=== PATIENT | female | born 1955 | race African-American/Black ===

== ENCOUNTER 2019-01-26 18:31 | Emergency (ER) | payer BC ==
[2019-01-26] MEDS ORDERED: ONDANSETRON 4 MG TAB.RAPDIS PO ONE (19:49)
[2019-01-26 21:19] LABS: HEMATOCRIT 29.4 % (36.0-47.0); HEMOGLOBIN 8.9 g/dL (12.0-15.5); MEAN CORPUSCULAR HEMOGLOBIN 23.4 pg (27.0-33.4); MEAN CORPUSCULAR HGB CONC 30.3 g/dL (32.0-36.0); MEAN CORPUSCULAR VOLUME 77 fl (80-97); PLATELET COUNT 369 10^3/uL (150-450); RED BLOOD COUNT 3.81 10^6/uL (3.72-5.28); RED CELL DISTRIBUTION WIDTH 17.4 % (11.5-14.0); WHITE BLOOD COUNT 16.3 10^3/uL (4.0-10.5)
[2019-01-26 21:37] LABS: ALBUMIN 5.2 g/dL (3.5-5.0); ALKALINE PHOSPHATASE 187 U/L (38-126); ANION GAP 16 (5-19); ASPARTATE AMINO TRANSFERASE 40 U/L (14-36); BILIRUBIN,DIRECT 0.5 mg/dL (0.0-0.4); BILIRUBIN,TOTAL 0.6 mg/dL (0.2-1.3); BLOOD UREA NITROGEN 11 mg/dL (7-20); CARBON DIOXIDE 26 mmol/L (22-30); CHLORIDE 101 mmol/L (98-107); GLUCOSE 113 mg/dL (75-110); POTASSIUM 3.9 mmol/L (3.6-5.0); TOTAL PROTEIN 10.1 g/dL (6.3-8.2)
[2019-01-26 21:41] LABS: ABSOLUTE MONOCYTES # (MANUAL) 0.2 10^3/uL (0.1-1.4); BAND NEUTROPHILS % (MANUAL) 8 % (3-5); BASOPHILS % (MANUAL) 0 % (0-2); EOSINOPHILS % (MANUAL) 0 % (0-6); LYMPHOCYTES % (MANUAL) 6 % (13-45); METAMYELOCYTES % (MANUAL) 1 % (0); MONOCYTES % (MANUAL) 1 % (3-13); SEGMENTED NEUTROPHILS % (MAN) 84 % (42-78); TOTAL CELLS COUNTED 100
[2019-01-26 21:43] LABS: ANISOCYTOSIS 1+; HYPOCHROMASIA 1+; TOXIC GRANULATION SLIGHT
[2019-01-26 21:44] LABS: PLATELET COMMENT ADEQUATE
--- NOTE | 2019-01-26 23:10 | RADIOLOGY REPORT (SQ) ---
CT ABDOMEN PELVIS WITH IV CONTRAST EXAM DATE: 01/26/2019 7:48 PM CDT HISTORY: Abdominal pain. COMPARISON: None. TECHNIQUE: CT scan of the abdomen and pelvis was performed with IV contrast. This exam was performed according to our departmental dose-optimization program, which includes automated exposure control, adjustment of the mA and/or kV according to patient size and/or use of iterative reconstruction technique. FINDINGS: Scattered atelectasis at the lung bases. No pleural or pericardial effusion. The liver, spleen, pancreas, gallbladder, adrenal glands, and kidneys are unremarkable. No hydronephrosis or urinary stones are seen. There has been a prior hysterectomy. There are multiple loops of distal small bowel which have wall thickening and mucosal hyperenhancement distant with terminal ileitis. There is also thickening of the cecum and proximal ascending colon. The appendix is normal. No intraperitoneal free fluid or free air is seen. The aorta is normal caliber and contains atherosclerotic calcifications. No acute bony findings. IMPRESSION: Findings consistent with terminal ileitis with proximal colitis, which may be infectious or inflammatory in origin.
[2019-01-27] MEDS ORDERED: ONDANSETRON HCL INJ/PF 4 MG/2 ML SDV IV ONE (00:05)
[2019-01-27] MEDS ORDERED: MORPHINE SULFATE 10 MG/ML INJ IV ONE (00:05)
[2019-01-27] MEDS ORDERED: CIPROFLOXACIN 400 MG/D5W RTU 400 MG/200 ML RTUPB IV ONE (00:15)
--- NOTE | 2019-01-27 00:19 | ER Document Report ---
ED General - General Chief Complaint: Vomiting/Diarrhea Stated Complaint: VOMITING Time Seen by Provider: 01/26/19 19:42 Primary Care Provider: UMA GAN MD [Primary Care Provider] - Follow up as needed TRAVEL OUTSIDE OF THE [place] IN LAST 30 DAYS: No - HPI Notes: Patient is a 63-year-old female who presents emergency department for evaluation of cramping abdominal pain and blood in her stool. She is had multiple episodes of nonbloody, nonbilious emesis. She is had bright red blood in her stool. Symptoms all started at 1:00 today. Prior to that she had been feeling well. She denies any recent antibiotic therapy. No exotic travel. She currently puts her pain at a 10 out of 10. Nothing seems to make it better. She does have a history of scleroderma, is on chronic immunosuppressant therapy with prednisone. - Related Data Allergies/Adverse Reactions: Sulfa (Sulfonamide Antibiotics) Allergy (Verified 01/26/19 18:32) Past Medical History - General Information source: Patient - Social History Smoking Status: Current Every Day Smoker Frequency of alcohol use: Occasional Drug Abuse: None Family History: Reviewed & Not Pertinent Patient has suicidal ideation: No Patient has homicidal ideation: No - Medical History Medical History: Other - Scleroderma - Past Medical History Cardiac Medical History: Reports: Hx Hypertension Denies: Hx Coronary Artery Disease, Hx Heart Attack Pulmonary Medical History: Reports: Hx Pneumonia - 14 years ago Denies: Hx Asthma, Hx Bronchitis, Hx COPD Neurological Medical History: Denies: Hx Cerebrovascular Accident, Hx Seizures Renal/ Medical History: Denies: Hx Peritoneal Dialysis Musculoskeletal Medical History: Reports Hx Arthritis Skin Medical History: Denies Hx MRSA Past Surgical History: Reports: Hx Appendectomy, Hx Hysterectomy, Hx Orthopedic Surgery - L ankle surg. Denies: Hx Pacemaker - Immunizations Hx Diphtheria, Pertussis, Tetanus Vaccination: Yes Hx Pneumococcal Vaccination: 03/16/11 Review of Systems - Review of Systems Constitutional: No symptoms reported EENT: No symptoms reported Cardiovascular: No symptoms reported Respiratory: No symptoms reported Gastrointestinal: See HPI Genitourinary: No symptoms reported Musculoskeletal: No symptoms reported Skin: No symptoms reported Neurological/Psychological: No symptoms reported Physical Exam - Vital signs Vitals: Temp Pulse Resp BP Pulse Ox 98.2 F 59 L 16 149/66 H 98 01/26/19 18:41 01/26/19 18:41 01/26/19 18:41 01/26/19 18:41 01/26/19 18:41 - Notes Notes: Vital signs reviewed, please refer to chart. Head is normocephalic, atraumatic. Pupils equal round, reactive to light. Neck is supple without meningismus. Heart is regular rate and rhythm. Lungs are clear to auscultation bilaterally. Abdomen is soft, moderately tender in the right lower quadrant without rebound or guarding, normoactive bowel sounds throughout. Extremities without cyanosis, clubbing. Posterior calves are nontender. Peripheral pulses are equal. Skin is warm and dry. Patient is awake, alert, neurological exam is nonfocal. Course - Re-evaluation Re-evalutation: 01/27/19 00:18 Presents emergency department for evaluation. She had laboratory investigations as ordered through triage, as well as CT scan. CT scan showed findings concerning for colitis. Patient has a markedly elevated white blood cell count. Her hemoglobin is low, which is chronic for her. I am concerned because she does have white blood cells in her stool. She is chronically immunosuppressed from her prednisone therapy but in fact states she only takes it once weekly. She is given a dose of IV Cipro here. Further given morphine and Zofran, will continue to monitor. 01/27/19 02:28 Patient is feeling improved after morphine and Zofran. She states she actually has an appointment with Dr. Gan tomorrow. She did have some blood in her st ool per her, official occult blood test is pending. The patient has, however, had a colonoscopy in the past by Dr. Hemphill. Was performed 3 years ago. She states there were no significant abnormalities. She is comfortable with the idea of discharge. We will send her home with Cipro and Zofran. She is to follow-up with primary care, return to the ED with worsening or new concerning symptoms of any sort. 01/27/19 02:30 - Vital Signs Vital signs: Temp Pulse Resp BP Pulse Ox 98.8 F 95 16 161/74 H 96 01/26/19 22:41 01/26/19 22:41 01/26/19 22:41 01/26/19 22:41 01/26/19 22:41 - Laboratory Result Diagrams: 01/26/19 21:02 01/26/19 21:02 Laboratory results interpreted by me: 01/26/19 01/26/19 01/26/19 19:55 21:02 21:02 WBC 16.3 H Hgb 8.9 L Hct 29.4 L MCV 77 L MCH 23.4 L MCHC 30.3 L RDW 17.4 H Seg Neuts % (Manual) 84 H Band Neutrophils % 8 H Lymphocytes % (Manual) 6 L Monocytes % (Manual) 1 L Metamyelocytes % 1 H Abs Neuts (Manual) 15.2 H Glucose 113 H Direct Bilirubin 0.5 H AST 40 H Alkaline Phosphatase 187 H Total Protein 10.1 H Albumin 5.2 H Stool for White Cells MODERATE H - Diagnostic Test Radiology reviewed: Reports reviewed Radiology results interpreted by me: 01/27/19 02:30 Abdomen/Pelvis CT 01/26/19 19:48 IMPRESSION: Findings consistent with terminal ileitis with proximal colitis, which may be infectious or inflammatory in origin. Discharge - Discharge Clinical Impression: Colitis, Lower GI bleeding Nausea and vomiting Qualifiers: Vomiting Intractability: non-intractable Condition: Stable Disposition: HOME, SELF-CARE Instructions: Diarrhea, Nonspecific ([facility]), Colitis, Nonspecific ([facility]) Additional Instructions: Take medication as prescribed. Follow-up with your doctor as scheduled today. Return to the emergency department with worsening or new concerning symptoms of any sort. Referrals: UMA GAN MD [Primary Care Provider] - Follow up as needed
[2019-01-27] MEDS ORDERED: ONDANSETRON ODT 4 MG TAB (6 TAB/ER DISP) PO PRN (02:30)
[2019-01-27 03:03] VITALS: BP 155/72
== END 2019-01-27 03:03 | disposition home or self-care (01) ==
LOC: ER 18:31
DX: K52.9 Noninfective gastroenteritis and colitis, unspecified (principal); K92.1 Melena; D72.829 Elevated white blood cell count, unspecified; M34.9 Systemic sclerosis, unspecified; F17.200 Nicotine dependence, unspecified, uncomplicated; I10 Essential (primary) hypertension; Z79.52 Long term (current) use of systemic steroids; Z88.2 Allergy status to sulfonamides
CPT/HCPCS: 99284; 96375; 96365; 96366; 36415; 87045; 89055; 87205; 83690; 85025; 80053; 87493; 74177; S0119; J2270; J2405; J0744